=== PATIENT | male | born 1940 | race Caucasian/White ===

== ENCOUNTER 2021-03-26 12:25 | Inpatient (IN) | payer OTHER ==
[~2021-03-26] VITALS: Ht 177.8 cm; Wt 36.6 kg
[~2021-03-26 12:25] MED LIST: PHENY100ER PO
[2021-03-26 13:05] LABS: Appearance, Urine Cloudy (Clear); Bilirubin, Urine Neg (Neg); Blood, Urine 5+ (Neg); Color, Urine Yellow (P-Yellow); Glucose Qualitative, Urine Neg (Neg); Ketones, Urine Neg (Neg); Leukocyte Esterase, Urine 3+ (Neg); Nitrite, Urine Pos (Neg); Protein, Urine 3+ (Neg); Specific Gravity, Urine 1.015 (1.003-1.022); Urobilinogen, Urine NORM (Normal)
[2021-03-26 13:17] LABS: White Blood Cells, Urine TNTC /hpf (0-5)
[2021-03-26 13:18] LABS: BASOPHILS ABSOLUTE AUTO 0.04 K/mm3 (0.00-0.23); BASOPHILS PERCENT AUTO 1 % (0-2); EOSINOPHILS ABSOLUTE AUTO 0.03 K/mm3 (0.00-0.68); EOSINOPHILS PERCENT AUTO 0 % (0-6); Hematocrit 35.6 % (37.0-53.0); Hemoglobin 11.7 g/dL (13.5-17.5); IMMATURE GRAN ABSOLUTE AUTO 0.06 K/mm3 (0.00-0.10); IMMATURE GRAN PERCENT AUTO 1 % (0-1); LYMPHOCYTES ABSOLUTE AUTO 1.12 K/mm3 (0.84-5.20); LYMPHOCYTES PERCENT AUTO 13 % (21-46); MONOCYTES ABSOLUTE AUTO 0.55 K/mm3 (0.16-1.47); MONOCYTES PERCENT AUTO 7 % (4-13); Mean Corpuscular HGB 30.5 pg (26.0-34.0); Mean Corpuscular HGB Conc 32.9 g/dL (31.5-36.5); Mean Corpuscular Volume 93 fL (80-100); Mean Platelet Volume 9.6 fL (9.1-12.4); NEUTROPHILS ABSOLUTE AUTO 6.71 K/mm3 (1.96-9.15); NEUTROPHILS PERCENT AUTO 79 % (41-73); Platelet Count 170 K/mm3 (150-400); RDW Coefficient Variation 13.4 % (11.7-14.2); RDW Standard Deviation 45.6 fL (35.1-46.3); Red Blood Cell Count 3.83 M/mm3 (4.30-5.90); White Blood Cell Count 8.51 K/mm3 (4.00-11.30)
[2021-03-26 13:18] LABS: Amorphous Light (0-Heavy); Bacteria Many /hpf; Red Blood Cells, Urine 25-50 /hpf (0-2); Squamous Epithelial Cells Few /hpf (Few)
[2021-03-26 13:34] LABS: Albumin, Blood 2.3 g/dL (3.4-5.0); Albumin/Globulin Ratio 0.5 (0.8-1.8); Bilirubin, Total 0.3 mg/dL (0.1-1.0); Calcium, Blood 8.7 mg/dL (8.5-10.1); Creatinine, Blood 1.85 mg/dL (0.60-1.20); Globulin, Blood 4.9 g/dL (2.2-4.0); Potassium, Blood 4.4 mmol/L (3.5-5.5); Total Protein, Blood 7.2 g/dL (6.4-8.2)
[2021-03-26] MEDS ORDERED: ACET325 PO (19:29)
[2021-03-26] MEDS ORDERED: ALBU90OI INH (19:30)
[2021-03-26] MEDS ORDERED: ATOR20 PO (19:32)
[2021-03-26] MEDS ORDERED: Doxycycline Mo100 M1 PO (19:33)
[2021-03-26] MEDS ORDERED: GABA300 PO (19:34)
[2021-03-26] MEDS ORDERED: ONE DAILY MUL400 MCG PO (19:35)
[2021-03-26] MEDS ORDERED: NICO21TP TD (19:36)
[2021-03-26] MEDS ORDERED: STRIVERDI RESPIM4 G1 INH (19:37)
[2021-03-26] MEDS ORDERED: OMEP20ER PO (19:37)
[2021-03-26] MEDS ORDERED: PHENY100ER PO (19:38)
[2021-03-26] MEDS ORDERED: ZINC SULFATE50 MG PO (19:38)
[2021-03-27 05:43] LABS: BASOPHILS ABSOLUTE AUTO 0.06 K/mm3 (0.00-0.23); BASOPHILS PERCENT AUTO 1 % (0-2); EOSINOPHILS ABSOLUTE AUTO 0.11 K/mm3 (0.00-0.68); EOSINOPHILS PERCENT AUTO 2 % (0-6); Hematocrit 34.1 % (37.0-53.0); Hemoglobin 11.1 g/dL (13.5-17.5); IMMATURE GRAN ABSOLUTE AUTO 0.03 K/mm3 (0.00-0.10); IMMATURE GRAN PERCENT AUTO 1 % (0-1); LYMPHOCYTES ABSOLUTE AUTO 1.42 K/mm3 (0.84-5.20); LYMPHOCYTES PERCENT AUTO 27 % (21-46); MONOCYTES ABSOLUTE AUTO 0.51 K/mm3 (0.16-1.47); MONOCYTES PERCENT AUTO 10 % (4-13); Mean Corpuscular HGB 30.3 pg (26.0-34.0); Mean Corpuscular HGB Conc 32.6 g/dL (31.5-36.5); Mean Corpuscular Volume 93 fL (80-100); Mean Platelet Volume 9.5 fL (9.1-12.4); NEUTROPHILS ABSOLUTE AUTO 3.06 K/mm3 (1.96-9.15); NEUTROPHILS PERCENT AUTO 59 % (41-73); Platelet Count 187 K/mm3 (150-400); RDW Coefficient Variation 13.4 % (11.7-14.2); RDW Standard Deviation 46.4 fL (35.1-46.3); Red Blood Cell Count 3.66 M/mm3 (4.30-5.90); White Blood Cell Count 5.19 K/mm3 (4.00-11.30)
[2021-03-27 06:06] LABS: Bun/Creatinine Ratio 17.7 (12.0-20.0); Calcium, Blood 8.3 mg/dL (8.5-10.1); Creatinine, Blood 1.81 mg/dL (0.60-1.20); Potassium, Blood 4.4 mmol/L (3.5-5.5)
[2021-03-27 06:17] LABS: Source, Urine Urostomy Bag
[2021-03-27 06:27] LABS: Appearance, Urine Hazy (Clear); Bilirubin, Urine Neg (Neg); Blood, Urine 3+ (Neg); Color, Urine Yellow (P-Yellow); Glucose Qualitative, Urine Neg (Neg); Ketones, Urine Neg (Neg); Leukocyte Esterase, Urine 3+ (Neg); Nitrite, Urine Pos (Neg); Protein, Urine 2+ (Neg); Specific Gravity, Urine 1.005 (1.003-1.022); Urobilinogen, Urine NORM (Normal)
--- NOTE | 2021-03-27 06:48 | NUR ---
BUSINESS LOAN PROCESSOR SUMMARY/ ADMISSION NOTE PATIENT WAS BROUGHT FROM THE ED. ALERT AND ORIENTED. HE COMPLAINED OF PAIN AT THE FLANK HIS PAIN MEDICATION WAS ADMINISTERED, HE HAS A NEPHROSTOMY TUBE OF WHICH SITE HAS PURULENT DRAINAGE. THIS WAS CLEANED AND DRESSING CHANGED.THE NEPHROSTOMY AND UROSTOMY IN SITU DRAINING URINE. URINE SAMPLE WAS GOTTEN FROM THE UROSTOMY BAG AND SENT TO THE LAB. NO OTHER WOUND WAS NOTED ON PATIENT'S BODY. VITALS STABLE. WILL CONTINUE TO MONITOR HIM.
[2021-03-27 06:58] LABS: White Blood Cells, Urine 25-50 /hpf (0-5)
[2021-03-27 06:59] LABS: Bacteria Mod /hpf; Squamous Epithelial Cells Not Seen /hpf (Few)
--- NOTE | 2021-03-27 18:39 | NUR ---
Patient is admitted with pyelonephritis of left kidney. He is alert and oriented x3 , able to make needs known. c/o left nephrotomy site pain 8/10 , percocet 1 tab was given and it effective. Left nephrotomy site is CDI AND draining clear yellow urine. Urostomy CDI. vital signs are stable.Continue on ABO therapy for pyelonephritis , no adverse effects noted. Ambulate independently . Call appropriately and call light within reach. Continue to monitor.
[2021-03-28 05:42] LABS: BASOPHILS ABSOLUTE AUTO 0.03 K/mm3 (0.00-0.23); BASOPHILS PERCENT AUTO 1 % (0-2); EOSINOPHILS ABSOLUTE AUTO 0.19 K/mm3 (0.00-0.68); EOSINOPHILS PERCENT AUTO 4 % (0-6); Hematocrit 34.4 % (37.0-53.0); Hemoglobin 11.1 g/dL (13.5-17.5); IMMATURE GRAN ABSOLUTE AUTO 0.02 K/mm3 (0.00-0.10); IMMATURE GRAN PERCENT AUTO 0 % (0-1); LYMPHOCYTES ABSOLUTE AUTO 1.18 K/mm3 (0.84-5.20); LYMPHOCYTES PERCENT AUTO 26 % (21-46); MONOCYTES ABSOLUTE AUTO 0.47 K/mm3 (0.16-1.47); MONOCYTES PERCENT AUTO 10 % (4-13); Mean Corpuscular HGB 29.7 pg (26.0-34.0); Mean Corpuscular HGB Conc 32.3 g/dL (31.5-36.5); Mean Corpuscular Volume 92 fL (80-100); Mean Platelet Volume 9.4 fL (9.1-12.4); NEUTROPHILS ABSOLUTE AUTO 2.72 K/mm3 (1.96-9.15); NEUTROPHILS PERCENT AUTO 59 % (41-73); Platelet Count 206 K/mm3 (150-400); RDW Coefficient Variation 13.3 % (11.7-14.2); RDW Standard Deviation 45.5 fL (35.1-46.3); Red Blood Cell Count 3.74 M/mm3 (4.30-5.90); White Blood Cell Count 4.61 K/mm3 (4.00-11.30)
[2021-03-28 05:53] LABS: Bun/Creatinine Ratio 18.6 (12.0-20.0); Calcium, Blood 8.3 mg/dL (8.5-10.1); Creatinine, Blood 1.77 mg/dL (0.60-1.20); Potassium, Blood 4.3 mmol/L (3.5-5.5)
--- NOTE | 2021-03-28 18:28 | NUR ---
Alert and oriented x3 , able to make needs known . C/o left nephrotomy site pain and described as sharp , percocet was given and it was effective. Vital signs are stable. left Nephrotomy site CDI and is draining clear yellow urine. Ambulate independently to bathroom . Call appropriately and call light within reach. Continue on ABO therapy for pyelonephritis , no adverse effects noted. Continue to monitor.
[2021-03-29 08:50] LABS: BASOPHILS ABSOLUTE AUTO 0.04 K/mm3 (0.00-0.23); BASOPHILS PERCENT AUTO 1 % (0-2); EOSINOPHILS ABSOLUTE AUTO 0.14 K/mm3 (0.00-0.68); EOSINOPHILS PERCENT AUTO 3 % (0-6); Hematocrit 39.7 % (37.0-53.0); IMMATURE GRAN ABSOLUTE AUTO 0.02 K/mm3 (0.00-0.10); IMMATURE GRAN PERCENT AUTO 0 % (0-1); LYMPHOCYTES ABSOLUTE AUTO 1.43 K/mm3 (0.84-5.20); LYMPHOCYTES PERCENT AUTO 30 % (21-46); MONOCYTES ABSOLUTE AUTO 0.31 K/mm3 (0.16-1.47); MONOCYTES PERCENT AUTO 7 % (4-13); Mean Corpuscular HGB 30.4 pg (26.0-34.0); Mean Corpuscular HGB Conc 32.7 g/dL (31.5-36.5); Mean Corpuscular Volume 93 fL (80-100); Mean Platelet Volume 9.5 fL (9.1-12.4); NEUTROPHILS ABSOLUTE AUTO 2.81 K/mm3 (1.96-9.15); NEUTROPHILS PERCENT AUTO 59 % (41-73); Platelet Count 241 K/mm3 (150-400); RDW Coefficient Variation 13.4 % (11.7-14.2); RDW Standard Deviation 45.8 fL (35.1-46.3); Red Blood Cell Count 4.28 M/mm3 (4.30-5.90); White Blood Cell Count 4.75 K/mm3 (4.00-11.30)
[2021-03-29 09:04] LABS: Bun/Creatinine Ratio 18.2 (12.0-20.0); Calcium, Blood 8.9 mg/dL (8.5-10.1); Creatinine, Blood 1.59 mg/dL (0.60-1.20); Potassium, Blood 4.3 mmol/L (3.5-5.5)
--- NOTE | 2021-03-29 18:14 | NUR ---
Alert and oriented x3 , c/o not having bowel movement, miralax and senna was ordered and given , no result. vital signs are stable.UA culture shows enterobacter aerogenes. Antibiotic switched to ciprofloxacin IV, Initial dose given. Left neprostomy tube in place and is draning clear yellow urine, the site is CDI. One person assist with ADLs. Independent with bathroom use. Continue to montor.
[2021-03-30] MEDS ORDERED: [UNRECOGNIZED DRUG - OTHER] PO (00:49)
[2021-03-30] MEDS ORDERED: PHENY100ER PO (00:50)
--- NOTE | 2021-03-30 05:32 | NUR ---
SHIFT SUMMARY NO ACUTE CHANGES THIS EVENING. PT DENIED ANY PAIN. PT SLEPT OFF AND ON THROUGHOUT THE NIGHT. PT REPORTED THAT HE HAD TWO SMALL HARD BOWEL MOVEMENTS THIS EVENING. LEFT NEPHROSTOMY PRESENT WITH LIGHT YELLOW URINE OUTPUT. VITAL SIGNS STABLE. PT RESTING IN BED AT THIS TIME. WILL CONTINUE TO MONITOR.
[2021-03-30 08:38] LABS: BASOPHILS ABSOLUTE AUTO 0.05 K/mm3 (0.00-0.23); BASOPHILS PERCENT AUTO 1 % (0-2); EOSINOPHILS ABSOLUTE AUTO 0.21 K/mm3 (0.00-0.68); EOSINOPHILS PERCENT AUTO 3 % (0-6); Hematocrit 37.8 % (37.0-53.0); Hemoglobin 12.1 g/dL (13.5-17.5); IMMATURE GRAN ABSOLUTE AUTO 0.04 K/mm3 (0.00-0.10); IMMATURE GRAN PERCENT AUTO 1 % (0-1); LYMPHOCYTES ABSOLUTE AUTO 1.51 K/mm3 (0.84-5.20); LYMPHOCYTES PERCENT AUTO 25 % (21-46); MONOCYTES ABSOLUTE AUTO 0.41 K/mm3 (0.16-1.47); MONOCYTES PERCENT AUTO 7 % (4-13); Mean Corpuscular Volume 94 fL (80-100); Mean Platelet Volume 9.3 fL (9.1-12.4); NEUTROPHILS ABSOLUTE AUTO 3.92 K/mm3 (1.96-9.15); NEUTROPHILS PERCENT AUTO 64 % (41-73); Platelet Count 274 K/mm3 (150-400); RDW Coefficient Variation 13.5 % (11.7-14.2); RDW Standard Deviation 46.8 fL (35.1-46.3); Red Blood Cell Count 4.04 M/mm3 (4.30-5.90); White Blood Cell Count 6.14 K/mm3 (4.00-11.30)
[2021-03-30 08:59] LABS: Calcium, Blood 8.8 mg/dL (8.5-10.1); Creatinine, Blood 1.62 mg/dL (0.60-1.20); Potassium, Blood 4.9 mmol/L (3.5-5.5)
[2021-03-30] MEDS ORDERED: DOCU100 PO (12:26)
[2021-03-30] MEDS ORDERED: DOCUZEN 8.6-501 EACH PO (12:27)
[2021-03-30] MEDS ORDERED: VISBIOME 112.51 EACH PO (12:28)
[2021-03-30] MEDS ORDERED: CIPR500 PO (12:36)
--- NOTE | 2021-03-30 18:31 | NUR ---
Alert and oriented x3 , able to make needs known. Denies any pain. NEPHROSTOMY site is CDI. Continue on ABO cipro for pyelonephritis ,no adverse effects. vital signs are stable. Patient discharge home in stable condition and discharged instruction given and acknowledge. Was picked by his daughter.
== END 2021-03-30 16:26 | disposition home health service (06) | DRG 699 ==
LOC: ER 12:25 → MEDS 17:29 → ENPENDDIS 03-30 11:06 → MEDS 03-30 16:26
PROVIDERS: Emergency Medicine; Family Medicine; ADMIT Internal Medicine
DX: T83.512A Infection and inflammatory reaction due to nephrostomy catheter, initial encounter (principal); N10 Acute pyelonephritis; G40.909 Epilepsy, unspecified, not intractable, without status epilepticus; J44.9 Chronic obstructive pulmonary disease, unspecified; I12.9 Hypertensive chronic kidney disease with stage 1 through stage 4 chronic kidney disease, or unspecified chronic kidney disease; N18.30 Chronic kidney disease, stage 3 unspecified; E78.5 Hyperlipidemia, unspecified; G47.33 Obstructive sleep apnea (adult) (pediatric); G89.4 Chronic pain syndrome; G62.9 Polyneuropathy, unspecified; K21.9 Gastro-esophageal reflux disease without esophagitis; Z88.8 Allergy status to other drugs, medicaments and biological substances; Y83.1 Surgical operation with implant of artificial internal device as the cause of abnormal reaction of the patient, or of later complication, without mention of misadventure at the time of the procedure
CPT/HCPCS: 36415; 74177; 80048; 80053; 81001; 83605; 85025; 87040; 87077; 87086; 87186; 94640; 94760; 96365-59; 96366; 96367; 96375; 97162; 97165; 97530; 97535; 99285-25; A9270; J0692; J0744; J1650; J2270; J2405; J2543; J3010; J3370; J7030; Q9967

== ENCOUNTER → 2021-06-25 | Outpatient (CLI) | payer OTHER ==
[~2021-06-25] MED LIST changes: +ACET325 PO; +ALBU90OI INH; +ATOR20 PO; +CIPR500 PO; +DOCU100 PO; +DOCUZEN 8.6-501 EACH PO; +Doxycycline Mo100 M1 PO; +GABA300 PO; +NICO21TP TD; +OMEP20ER PO; +ONE DAILY MUL400 MCG PO; +STRIVERDI RESPIM4 G1 INH; +VISBIOME 112.51 EACH PO; +ZINC SULFATE50 MG PO; +[UNRECOGNIZED DRUG - OTHER] PO
[2021-06-26 15:58] LABS: Creatinine Urine 40.8 mg/dL (27.00-270.00); Protein, Urine Quantitative 37.8 mg/dL (0.0-11.9)
== END ==
LOC: LAB SHORT 07:00 → LAB FUT 06-24 10:55
PROVIDERS: Internal Medicine Nephrology
DX: N18.30 Chronic kidney disease, stage 3 unspecified (principal); D63.1 Anemia in chronic kidney disease; R73.09 Other abnormal glucose; N25.81 Secondary hyperparathyroidism of renal origin; E55.9 Vitamin D deficiency, unspecified; E78.00 Pure hypercholesterolemia, unspecified; E29.1 Testicular hypofunction; R76.9 Abnormal immunological finding in serum, unspecified; R94.5 Abnormal results of liver function studies; R94.6 Abnormal results of thyroid function studies; D51.8 Other vitamin B12 deficiency anemias; D52.8 Other folate deficiency anemias; D50.9 Iron deficiency anemia, unspecified
CPT/HCPCS: 81050; 82043; 82570; 84156

== ENCOUNTER 2021-07-22 11:05 | Emergency (ER) | payer OTHER ==
[~2021-07-22] VITALS: Ht 177.8 cm; Wt 60.3 kg
[2021-07-22] MEDS ORDERED: PEPCID20 MG (11:16)
[2021-07-22 11:35] LABS: BASOPHILS ABSOLUTE AUTO 0.06 K/mm3 (0.00-0.23); BASOPHILS PERCENT AUTO 1 % (0-2); EOSINOPHILS ABSOLUTE AUTO 0.14 K/mm3 (0.00-0.68); EOSINOPHILS PERCENT AUTO 2 % (0-6); Hematocrit 39.6 % (37.0-53.0); Hemoglobin 12.8 g/dL (13.5-17.5); IMMATURE GRAN ABSOLUTE AUTO 0.02 K/mm3 (0.00-0.10); IMMATURE GRAN PERCENT AUTO 0 % (0-1); LYMPHOCYTES ABSOLUTE AUTO 1.11 K/mm3 (0.84-5.20); LYMPHOCYTES PERCENT AUTO 15 % (21-46); MONOCYTES ABSOLUTE AUTO 0.62 K/mm3 (0.16-1.47); MONOCYTES PERCENT AUTO 9 % (4-13); Mean Corpuscular HGB 30.5 pg (26.0-34.0); Mean Corpuscular HGB Conc 32.3 g/dL (31.5-36.5); Mean Corpuscular Volume 95 fL (80-100); Mean Platelet Volume 9.2 fL (9.1-12.4); NEUTROPHILS ABSOLUTE AUTO 5.24 K/mm3 (1.96-9.15); NEUTROPHILS PERCENT AUTO 73 % (41-73); Platelet Count 213 K/mm3 (150-400); RDW Coefficient Variation 13.4 % (11.7-14.2); RDW Standard Deviation 46.8 fL (35.1-46.3); Red Blood Cell Count 4.19 M/mm3 (4.30-5.90); White Blood Cell Count 7.19 K/mm3 (4.00-11.30)
[2021-07-22 11:52] LABS: Albumin, Blood 2.8 g/dL (3.4-5.0); Albumin/Globulin Ratio 0.6 (0.8-1.8); Bilirubin, Total 0.2 mg/dL (0.1-1.0); Bun/Creatinine Ratio 18.2 (12.0-20.0); Calcium, Blood 8.7 mg/dL (8.5-10.1); Creatinine, Blood 1.81 mg/dL (0.60-1.20); Globulin, Blood 4.8 g/dL (2.2-4.0); Potassium, Blood 4.8 mmol/L (3.5-5.5); Total Protein, Blood 7.6 g/dL (6.4-8.2)
[2021-07-22] MEDS ORDERED: CEPH500 PO (12:47)
[2021-07-22] MEDS ORDERED: Monodox100 MG PO (12:47)
== END 2021-07-22 13:26 | disposition home or self-care (01) ==
LOC: ER 11:05
PROVIDERS: Physician Assistant
DX: L03.311 Cellulitis of abdominal wall (principal); J44.9 Chronic obstructive pulmonary disease, unspecified; E78.5 Hyperlipidemia, unspecified; I12.9 Hypertensive chronic kidney disease with stage 1 through stage 4 chronic kidney disease, or unspecified chronic kidney disease; N18.30 Chronic kidney disease, stage 3 unspecified; F17.210 Nicotine dependence, cigarettes, uncomplicated; Z79.899 Other long term (current) drug therapy
CPT/HCPCS: 74177; 80053; 83605; 85025; 93005; 93010; 96374; 99284-25; J0696; Q9967

== ENCOUNTER 2021-08-05 08:00 | Day surgery (SDC) | payer OTHER ==
[~2021-08-05] VITALS: Ht 180.3 cm; Wt 61.0 kg
[~2021-08-05 08:00] MED LIST changes: +Aspir 8181 MG PO; +CEPH500 PO; +Monodox100 MG PO; +PEPCID20 MG
[2021-08-05 08:38] LABS: BASOPHILS PERCENT AUTO 1 % (0-2); EOSINOPHILS ABSOLUTE AUTO 0.31 K/mm3 (0.00-0.68); EOSINOPHILS PERCENT AUTO 4 % (0-6); Hematocrit 42.9 % (37.0-53.0); Hemoglobin 13.9 g/dL (13.5-17.5); IMMATURE GRAN ABSOLUTE AUTO 0.01 K/mm3 (0.00-0.10); IMMATURE GRAN PERCENT AUTO 0 % (0-1); LYMPHOCYTES ABSOLUTE AUTO 1.91 K/mm3 (0.84-5.20); LYMPHOCYTES PERCENT AUTO 27 % (21-46); MONOCYTES ABSOLUTE AUTO 0.55 K/mm3 (0.16-1.47); MONOCYTES PERCENT AUTO 8 % (4-13); Mean Corpuscular HGB 30.3 pg (26.0-34.0); Mean Corpuscular HGB Conc 32.4 g/dL (31.5-36.5); Mean Corpuscular Volume 94 fL (80-100); Mean Platelet Volume 9.1 fL (9.1-12.4); NEUTROPHILS PERCENT AUTO 59 % (41-73); Platelet Count 260 K/mm3 (150-400); RDW Coefficient Variation 13.5 % (11.7-14.2); RDW Standard Deviation 46.6 fL (35.1-46.3); Red Blood Cell Count 4.59 M/mm3 (4.30-5.90); White Blood Cell Count 6.98 K/mm3 (4.00-11.30)
[2021-08-05 08:52] LABS: International Normalized Ratio 1.01; Prothrombin Time Results 10.6 Sec (9.7-11.5)
[2021-08-05 09:30] LABS: Calcium, Blood 8.6 mg/dL (8.5-10.1); Creatinine, Blood 2.14 mg/dL (0.60-1.20); Potassium, Blood 4.6 mmol/L (3.5-5.5)
--- NOTE | 2021-08-05 12:05 | NUR ---
PT LEFT NEPH TUBE SITE NO HEMATOMA,NO BLEEDING WITH INTACT DRESSING AND DRAIN-TUBE TO GRAVITY BAG IN PLACE; SLIGHT YELLOW URINE NOTED IN GRAVITY BAG. PT DRINKING SODA. PT DENIES CHEST PAIN. CALL LIGHT IN REACH.
== END 2021-08-05 13:45 | disposition home or self-care (01) ==
LOC: MHTC 08:00
PROVIDERS: Radiology Diagnostic Radiology
DX: Z43.6 Encounter for attention to other artificial openings of urinary tract (principal); N13.30 Unspecified hydronephrosis; J44.9 Chronic obstructive pulmonary disease, unspecified; I12.9 Hypertensive chronic kidney disease with stage 1 through stage 4 chronic kidney disease, or unspecified chronic kidney disease; N18.30 Chronic kidney disease, stage 3 unspecified; E78.5 Hyperlipidemia, unspecified; G47.33 Obstructive sleep apnea (adult) (pediatric); F17.210 Nicotine dependence, cigarettes, uncomplicated
CPT/HCPCS: 36415; 50435; 80048; 85025; 85610; 99152; C1729; C1769; J2250; J3010; J7040; Q9967

== ENCOUNTER → 2021-11-12 | Outpatient (CLI) | payer OTHER ==
[2021-11-13 14:19] LABS: Protein, Urine Quantitative 66.5 mg/dL (0.0-11.9)
== END | disposition home or self-care (01) ==
LOC: LAB 07:00 → LAB SHORT 07:00
PROVIDERS: Internal Medicine Nephrology
DX: N18.30 Chronic kidney disease, stage 3 unspecified (principal); D63.1 Anemia in chronic kidney disease; N25.81 Secondary hyperparathyroidism of renal origin; E55.9 Vitamin D deficiency, unspecified; E29.1 Testicular hypofunction; R94.6 Abnormal results of thyroid function studies; R94.5 Abnormal results of liver function studies; R76.9 Abnormal immunological finding in serum, unspecified
CPT/HCPCS: 81050; 82043; 84156; 84300

== ENCOUNTER 2022-01-06 10:34 | Emergency (ER) | payer OTHER ==
[~2022-01-06] VITALS: Ht 177.8 cm; Wt 61.2 kg
--- NOTE | 2022-01-06 12:20 | NUR ---
PT ARRIVES FROM ER WITH 20 G R AC IV INSERTED. PT HERE TO HAVE L SIDED NEPHROSTOMY TUBE ACCESSED BY DR ALFRED. "IT'S NOT OUT YET, BUT LEAKING" PER PT. VSS. NADN. LINDSAY DIEGO WITH IN REACH.
--- NOTE | 2022-01-06 14:53 | NUR ---
REBEKAMILO RETURNS FROM THE [facility] SITH NEW NEPH TUBE PLACED TO THE LEFT NEPHROSTOMY. BLOODY URINE NOTED TO THE TUBE. PATIENT PLACED ON THE MONITOR AND CALL LIGHT IN REACH. VVS. LATE LUNCH TRAY ORDERED. WILL NOTIFY DAUGHTER OF COMPLETION OF PROCEDURE.
--- NOTE | 2022-01-06 15:41 | NUR ---
PATIENT ALARMED THAT THERE IS BLOOD IN THE NEPH TUBE. EXPLAINED TO THE PATIENT THAT THE TRAUMA OF REPLACING THE NEPH TUBE CAN CAUSE THERE TO BE BLOODY DRAINAGE IN THE URINE DRAINAGE, AND THAT THIS IS NORMAL JUST POST A CHANGEOUT. THIS SHOULD CLEAR OVER THE NEXT FEW HOURS.
--- NOTE | 2022-01-06 15:44 | NUR ---
PATIENT SITTING UP ON EMERY SIDE OF THE BED AND LATE LUNCH TRAY SERVED. FEEDING SELF. DAUGHT AT THE BEDSIDE. SHE ALSO NOTED THE BLOODY URING DRAINAGE IN THE BAG AND WAS UPDATED ON WHY.
--- NOTE | 2022-01-06 15:53 | NUR ---
REVEIWED DISCAHRGE INSTRUCTIONS WITH THE PATIENT AND HIS DAUGHTER. ALL QUESTIONS ANSWERED AND COPIES GIVEN TO THE PATIENT. PATIENT UP AND OFF THE MONITOR AND DRESSED.
--- NOTE | 2022-01-06 16:10 | NUR ---
PIV REMOVED. DISHCARGED HOME WITH DAUGHTER VIA WHEELCHAIR.
== END 2022-01-06 12:12 | disposition home or self-care (01) ==
LOC: ER 10:34
DX: T83.022A Displacement of nephrostomy catheter, initial encounter (principal); Y73.8 Miscellaneous gastroenterology and urology devices associated with adverse incidents, not elsewhere classified; F17.210 Nicotine dependence, cigarettes, uncomplicated
CPT/HCPCS: 99152; 99284-25; C1729; C1769; J2250; J3010; J7040; J7050; Q9967

== ENCOUNTER 2022-05-24 09:42 | Emergency (ER) | payer OTHER ==
[~2022-05-24] VITALS: Ht 177.8 cm; Wt 59.0 kg
[2022-05-24 10:08] LABS: Source, Urine Nephrostomy
[2022-05-24 10:11] LABS: Bilirubin, Urine Neg (Neg); Blood, Urine 3+ (Neg); Glucose Qualitative, Urine Neg (Neg); Ketones, Urine 1+ (Neg); Leukocyte Esterase, Urine 3+ (Neg); Nitrite, Urine Neg (Neg); Protein, Urine 3+ (Neg); Specific Gravity, Urine 1.015 (1.003-1.022); Urobilinogen, Urine NORM (Normal)
[2022-05-24 10:29] LABS: Appearance, Urine Cloudy (Clear); Color, Urine Brown (P-Yellow)
[2022-05-24 10:34] LABS: Amorphous Mod (0-Heavy); Bacteria Mod /hpf; Mucus Light (0-Heavy); Squamous Epithelial Cells Not Seen /hpf (Few); Triple Phosphate Crystals Few /hpf
[2022-05-24 10:34] LABS: BASOPHILS ABSOLUTE AUTO 0.05 K/mm3 (0.00-0.23); BASOPHILS PERCENT AUTO 1 % (0-2); EOSINOPHILS ABSOLUTE AUTO 0.07 K/mm3 (0.00-0.68); EOSINOPHILS PERCENT AUTO 1 % (0-6); Hematocrit 40.9 % (37.0-53.0); Hemoglobin 13.8 g/dL (13.5-17.5); IMMATURE GRAN ABSOLUTE AUTO 0.01 K/mm3 (0.00-0.10); IMMATURE GRAN PERCENT AUTO 0 % (0-1); LYMPHOCYTES ABSOLUTE AUTO 1.68 K/mm3 (0.84-5.20); LYMPHOCYTES PERCENT AUTO 25 % (21-46); MONOCYTES ABSOLUTE AUTO 0.56 K/mm3 (0.16-1.47); MONOCYTES PERCENT AUTO 8 % (4-13); Mean Corpuscular HGB 30.7 pg (26.0-34.0); Mean Corpuscular HGB Conc 33.7 g/dL (31.5-36.5); Mean Corpuscular Volume 91 fL (80-100); Mean Platelet Volume 9.3 fL (9.1-12.4); NEUTROPHILS ABSOLUTE AUTO 4.29 K/mm3 (1.96-9.15); NEUTROPHILS PERCENT AUTO 64 % (41-73); Platelet Count 203 K/mm3 (150-400); RDW Coefficient Variation 13.2 % (11.7-14.2); RDW Standard Deviation 44.3 fL (35.1-46.3); Red Blood Cell Count 4.49 M/mm3 (4.30-5.90); White Blood Cell Count 6.66 K/mm3 (4.00-11.30)
[2022-05-24 10:52] LABS: Albumin, Blood 3.4 g/dL (3.4-5.0); Albumin/Globulin Ratio 0.8 (0.8-1.8); Bilirubin, Total 0.4 mg/dL (0.1-1.0); Bun/Creatinine Ratio 17.9 (12.0-20.0); Calcium, Blood 8.7 mg/dL (8.5-10.1); Creatinine, Blood 1.73 mg/dL (0.60-1.20); Globulin, Blood 4.3 g/dL (2.2-4.0); Potassium, Blood 4.2 mmol/L (3.5-5.5); Total Protein, Blood 7.7 g/dL (6.4-8.2)
== END 2022-05-24 11:42 | disposition home or self-care (01) ==
LOC: ER 09:42
PROVIDERS: Emergency Medicine; Student in an Organized Health Care Education/Training Program
DX: N50.9 Disorder of male genital organs, unspecified (principal); F17.210 Nicotine dependence, cigarettes, uncomplicated; Z79.899 Other long term (current) drug therapy
CPT/HCPCS: 36415; 80053; 81001; 83605; 85025; 87086; J0696